=== PATIENT | male | born 1950 | race Caucasian/White ===

== ENCOUNTER → 2017-09-27 12:51 | Outpatient (POV) | payer MEDICARE, OTHER, SELFPAY ==
[2017-09-27 13:01] VITALS: BP 151/86; PULSE 80; RESP 18; TEMP 36.6; O2SAT 99
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
[2017-09-27 15:55] LABS: Amphetamine/Metha Screen,Urine Negative ng/mL (<1000); Barbiturates Screen,Urine Negative ng/mL (<200); Benzodiazepines Screen,Urine Negative ng/mL (200); Cannabinoid Screen,Urine Negative ng/mL (<50); Cocaine Screen,Urine Negative ng/g (<300); Methadone Screen,Urine Negative ng/mL (<300); Opiate Screen,Urine Positive ng/mL (<300); Phencyclidine Screen,Urine Negative ng/mL (<25)
[2017-10-04 19:11] LABS: Codeine Negative (Cutoff=100); Hydrocodone Negative (Cutoff=100); Hydromorphone Positive (.); Morphine Positive (.)
[2017-10-05 14:27] LABS: Opiates Positive (.)
--- NOTE | 2017-11-05 14:34 | PC.NURSE ---
FLEXERIL 10MG WITH 2 REFILLS FAXED TO [facility]
== END ==
PROVIDERS: PCP Family Medicine; Visit Provider Clinical Nurse Specialist Family Health
DX: M54.16 Radiculopathy, lumbar region (principal); M51.36 Other intervertebral disc degeneration, lumbar region; M46.90 Unspecified inflammatory spondylopathy, site unspecified; Z79.899 Other long term (current) drug therapy
CPT/HCPCS: 80305; 80361; 80365; 99202; G0480

== ENCOUNTER → 2017-11-15 12:56 | Outpatient (POV) | payer MEDICARE, OTHER, SELFPAY ==
[2017-11-15 13:10] VITALS: BP 185/114; PULSE 112; RESP 18; O2SAT 97; BMI 31.8
--- NOTE | 2017-11-15 13:20 | HMH.PAINSOAP ---
[facility] Pain Management SOAP Note Subjective:: Patient is a pleasant 67-year-old white male who presents today for follow-up and medication refills. Patient is currently on hydromorphone 8 mg 1 p.o. twice daily and morphine sulfate ER 30 mg 1 p.o. twice daily. Patient denies side effects to the medication. Patient's ALISHA #[id number] reviewed and appropriate. Patient states most of his pain is in his back. Patient states that the pain medication helps up to 70%. Patient states driving and sitting for long periods of time make his pain worse while moving around can decreased.. Patient urine drug screen at her last visit that was appropriate. Patient did have a bad experience with the lab. Patient may do a blood serum drug screen at any time if necessary. ROS General: no recent weight change, no fever, no sleep disturbances Respiratory: no cough, no shortness of air, no recurring pulmonary infections Cardiovascular/Peripheral Vascular: No chest pain, No palpitations, no edema, no shortness of breath. Gastrointestinal: no incontinence, normal bowel movements reported Genitourinary: no incontinence Musculoskeletal: Back pain, leg pain Psychiatric: normal mood/ affect Neurological: [denies weakness in extremities], [denies balance issues] Objective:: Physical Exam General: Alert and oriented x3, no acute distress, pleasant and cooperative, [on room air] Lungs: Resps E/U, Symmetrical chest expansion, Eyes: PERRL Musculoskeletal: Flexion and extension of lumbar spine somewhat guarded secondary to pain, deep tendon reflexes normal, strength in upper and lower extremities [5/5], antalgic gait noted Neurological: speech clear, construction stonemason equal, no gross sensory deficits Assessment:: Postlaminectomy syndrome, lumbar radiculopathy, degenerative disc disease of the lumbar spine, facet arthropathy. Plan:: We will refill the patient's Dilaudid 8 mg 1 p.o. twice daily morphine sulfate ER 30 mg 1 p.o. twice daily. We will continue to monitor for compliance. We will give him 2 months worth of prescriptions. Patient can sampler pickup the third month in the clinic. Dr. Rodriguez has reviewed this chart and agrees with this plan of care. I will follow-up with the pain 3 months. Patient has been prescribed a controlled substance after being counseled on the medication, medication safety, and possible side effects. ALISHA report has been obtained and reviewed prior to prescription and found to be appropriate. Opioid contract was reviewed and signed by the patient, and that they have agreed to all of the terms set forth by our compliance program. This note was dictated using voice recognition software and may contain errors or omissions
--- NOTE | 2017-11-15 13:25 | P.CONS_ITS ---
[facility] Pain Management SOAP Note Subjective:: Patient is a pleasant 67-year-old white male who presents today for follow-up and medication refills. Patient is currently on hydromorphone 8 mg 1 p.o. twice daily and morphine sulfate ER 30 mg 1 p.o. twice daily. Patient denies side effects to the medication. Patient's ALISHA #[id number] reviewed and appropriate. Patient states most of his pain is in his back. Patient states that the pain medication helps up to 70%. Patient states driving and sitting for long periods of time make his pain worse while moving around can decreased.. Patient urine drug screen at her last visit that was appropriate. Patient did have a bad experience with the lab. Patient may do a blood serum drug screen at any time if necessary. ROS General: no recent weight change, no fever, no sleep disturbances Respiratory: no cough, no shortness of air, no recurring pulmonary infections Cardiovascular/Peripheral Vascular: No chest pain, No palpitations, no edema, no shortness of breath. Gastrointestinal: no incontinence, normal bowel movements reported Genitourinary: no incontinence Musculoskeletal: Back pain, leg pain Psychiatric: normal mood/ affect Neurological: [denies weakness in extremities], [denies balance issues] Objective:: Physical Exam General: Alert and oriented x3, no acute distress, pleasant and cooperative, [ on room air] Lungs: Resps E/U, Symmetrical chest expansion, Eyes: PERRL Musculoskeletal: Flexion and extension of lumbar spine somewhat guarded secondary to pain, deep tendon reflexes normal, strength in upper and lower extremities [5/5], antalgic gait noted Neurological: speech clear, yardmaster equal, no gross sensory deficits Assessment:: Postlaminectomy syndrome, lumbar radiculopathy, degenerative disc disease of the lumbar spine, facet arthropathy. Plan:: We will refill the patient's Dilaudid 8 mg 1 p.o. twice daily morphine sulfate ER 30 mg 1 p.o. twice daily. We will continue to monitor for compliance. We will give him 2 months worth of prescriptions. Patient can crab picker the third month in the clinic. Dr. Rodriguez has reviewed this chart and agrees with this plan of care. I will follow-up with the pain 3 months. Patient has been prescribed a controlled substance after being counseled on the medication, medication safety, and possible side effects. ALISHA report has been obtained and reviewed prior to prescription and found to be appropriate. Opioid contract was reviewed and signed by the patient, and that they have agreed to all of the terms set forth by our compliance program. This note was dictated using voice recognition software and may contain errors or omissions
== END ==
PROVIDERS: PCP Family Medicine; Visit Provider Clinical Nurse Specialist Family Health
DX: M54.16 Radiculopathy, lumbar region (principal)
CPT/HCPCS: 99212

== ENCOUNTER → 2018-01-25 12:12 | Outpatient (CLI) | payer MEDICARE, SELFPAY | PROVIDERS: PCP Family Medicine; Visit Provider Clinical Nurse Specialist Family Health | DX: Z79.899 Other long term (current) drug therapy (principal) | CPT/HCPCS: 36415; 80356; 80361; G0480 ==

== ENCOUNTER → 2018-02-23 15:17 | Outpatient (POV) | payer MEDICARE, OTHER, SELFPAY ==
[2018-02-23 16:14] VITALS: BP 160/90; PULSE 85; RESP 16; TEMP 36.7; O2SAT 96; BMI 33.3
--- NOTE | 2018-02-23 16:44 | P.CONS_ITS ---
[facility] Pain Management SOAP Note Subjective:: This patient is a pleasant 67-year-old white male who we are medically managing for low back pain with lumbar radiculopathy symptoms and postlaminectomy syndrome of lumbar spine. He is doing very well on morphine sulfate extended release 30 mg twice a day and hydromorphone 8 mg twice a day breakthrough. Kaspar and urine drug screen are all appropriate. Kaspar [id number]. We will refill his medications today. We will give him 2 months worth of medications. We will follow-up with him in 2 months. Objective:: Alert and oriented x3 in no acute distress. Patient does have an antalgic gait. Motor strength of the lower extremities is 5/5. There is no gross sensory de ficit. Assessment:: Degenerative disc disease of lumbar spine with lumbar radiculopathy symptoms and postlaminectomy syndrome lumbar spine Plan:: We will refill his morphine sulfate extended release 30 mg twice a day and hydromorphone 8 mg twice a day. We will give him 2 months worth of prescriptions. Will follow up with him in 2 months. He is considering spinal cord stimulation or intrathecal therapy. We will talk more about this at his next visit.
== END ==
PROVIDERS: PCP Family Medicine; Visit Provider Anesthesiology
DX: M96.1 Postlaminectomy syndrome, not elsewhere classified; M51.16 Intervertebral disc disorders with radiculopathy, lumbar region
CPT/HCPCS: 99212

== ENCOUNTER → 2018-04-20 13:57 | Outpatient (CLI) | payer MEDICARE, OTHER, SELFPAY | PROVIDERS: Visit Provider Clinical Nurse Specialist Family Health | DX: Z79.899 Other long term (current) drug therapy (principal) | CPT/HCPCS: 36415; 80356; 80361; G0480 ==

== ENCOUNTER → 2018-05-16 14:20 | Outpatient (POV) | payer MEDICARE, OTHER, SELFPAY ==
[2018-05-16 14:44] VITALS: BP 158/96; PULSE 91; RESP 18; O2SAT 98; BMI 32.5
--- NOTE | 2018-05-16 15:07 | P.CONS_ITS ---
[facility] Pain Management SOAP Note Subjective:: Patient is a pleasant 68-year-old white male who presents today for medication refills. Patient is being treated for low back pain secondary to lumbar radiculopathy symptoms and postlaminectomy syndrome. He is doing well on morphine sulfate extended release 30 mg 1 p.o. twice daily and hydromorphone 8 mg twice a day for breakthrough. Alisha and urine drug screen has been appropriate. Patient would like to discuss moving towards an intrathecal pump I believe this would be beneficial. Patient is already showing signs of hyper analgesia. ROS General: no recent weight change, no fever, no sleep disturbances Respiratory: no cough, no shortness of air, no recurring pulmonary infections Cardiovascular/Peripheral Vascular: No chest pain, No palpitations, no edema, no shortness of breath. Gastrointestinal: no incontinence, normal bowel movements reported Genitourinary: no incontinence Musculoskeletal: Back pain, leg pain Psychiatric: normal mood/ affect Neurological: [denies weakness in extremities], [denies balance issues] Objective:: Physical Exam General: Alert and oriented x3, no acute distress, pleasant and cooperative, [on room air] Lungs: Resps E/U, Symmetrical chest expansion, Eyes: PERRL Musculoskeletal: Flexion and extension of lumbar spine somewhat guarded secondary to pain, deep tendon reflexes normal, strength in upper and lower extremities [5/5], [abnormal gait noted] Neurological: speech clear, event coordinator equal, no gross sensory deficits Assessment:: Degenerative disc disease lumbar spine with lumbar radiculopathy, post laminectomy syndrome Plan:: We will refill his morphine ER 30 mg 1 p.o. twice daily and hydromorphone 8 mg 1 p.o. twice daily. We will send him for psychological evaluation 2 months and see him back in the office in 3 months. At that time we will begin a weaning plan if he is an appropriate candidate for intrathecal pain pump. Patient has been prescribed a controlled substance after being counseled on the medication, medication safety, and possible side effects. ALISHA report has been obtained and reviewed prior to prescription and found to be appropriate. Opioid contract was reviewed and signed by the patient, and that they have agreed to all of the terms set forth by our compliance program. This note was dictated using voice recognition software and may contain errors or omissions
--- NOTE | 2018-05-25 09:23 | PC.NURSE ---
05/25/18 refill for flexeril tid faxed to [facility]
== END ==
PROVIDERS: PCP Family Medicine; Visit Provider Clinical Nurse Specialist Family Health
DX: M51.16 Intervertebral disc disorders with radiculopathy, lumbar region (principal); M96.1 Postlaminectomy syndrome, not elsewhere classified
CPT/HCPCS: 99213

== ENCOUNTER → 2018-08-15 10:58 | Outpatient (POV) | payer MEDICARE, OTHER, SELFPAY ==
[2018-08-15 11:49] VITALS: BP 145/82; PULSE 83; RESP 18; O2SAT 98; BMI 31.8
--- NOTE | 2018-08-15 12:48 | P.CONS_ITS ---
[facility] Pain Management SOAP Note Subjective:: Patient is a 68-year-old white male who presents today for medication refills. He is being treated for low back pain secondary to lumbar radiculopathy and postlaminectomy syndrome. He is currently on morphine sulfate extended release 30 mg 1 p.o. twice daily and hydromorphone 8 mg 1 p.o. twice daily. Alisha and urine drug screens have been appropriate. Patient has been talking about an intrathecal pain pump however he canceled his appointment to his psychological evaluation. Once we discussed weaning off medications he was a little concerned in regards to this. Patient and I had a long discussion that this is going to be necessary moving forward. I want the patient to begin weaning off now. ROS General: no recent weight change, no fever, no sleep disturbances Respiratory: no cough, no shortness of air, no recurring pulmonary infections Cardiovascular/Peripheral Vascular: No chest pain, No palpitations, no edema, no shortness of breath. Gastrointestinal: no incontinence, normal bowel movements reported Genitourinary: no incontinence Musculoskeletal: Back pain, leg pain Psychiatric: normal mood/ affect Neurological: [denies weakness in extremities], [denies balance issues] Objective:: Physical Exam General: Alert and oriented x3, no acute distress, pleasant and cooperative, [on room air] Lungs: Resps E/U, Symmetrical chest expansion, Eyes: PERRL Musculoskeletal: Flexion and extension of lumbar spine somewhat guarded secondary to pain, deep tendon reflexes normal, strength in upper and lower extremities [5/5], [abnormal gait noted] Neurological: speech clear, plasterer stucco equal, no gross sensory deficits Assessment:: Degenerative disc disease lumbar spine with lumbar radiculopathy and postlaminectomy syndrome Plan:: We will refill the patient's medication morphine extended release 1 p.o. twice daily and hydromorphone 8 mg 1 p.o. twice daily. We will send him to a psychological evaluation. We will see him back in 2 months reassess his symptoms at that time. I discussed with him he needs to start weaning himself off of his medication he states he understands. Patient has been prescribed a controlled substance after being counseled on the medication, medication safety, and possible side effects. ALISHA report has been obtained and reviewed prior to prescription and found to be appropriate. Opioid contract was reviewed and signed by the patient, and that they have agreed to all of the terms set forth by our compliance program. Dr. Rodriguez has reviewed this note and agrees with this plan of care. This note was dictated using voice recognition software and may contain errors or omissions
== END ==
PROVIDERS: PCP Family Medicine; Visit Provider Clinical Nurse Specialist Family Health
DX: M51.16 Intervertebral disc disorders with radiculopathy, lumbar region (principal); M96.1 Postlaminectomy syndrome, not elsewhere classified
CPT/HCPCS: 99213

== ENCOUNTER → 2018-10-11 11:14 | Outpatient (POV) | payer MEDICARE, OTHER, SELFPAY ==
[2018-10-11 11:26] VITALS: BP 162/93; PULSE 98; RESP 18; O2SAT 98; BMI 31.5
--- NOTE | 2018-10-11 12:40 | HMH.PAINSOAP ---
[facility] Pain Management SOAP Note Subjective:: Patient is a pleasant 68-year-old white male who presents today for medication refills and discussion in regards to his psychological evaluation. 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 I do believe that this is probably correct. Patient is tearful today. Patient is unsure if he can move forward with weaning. I discussed with him the necessity of that per his hyper analgesia. Patient has been on narcotics for years. He is currently on morphine extended release 30 mg 1 p.o. twice daily and Dilaudid 8 mg 1 p.o. twice daily. He rates his pain a 9 out of 10. ROS General: no recent weight change, no fever, no sleep disturbances Respiratory: no cough, no shortness of air, no recurring pulmonary infections Cardiovascular/Peripheral Vascular: No chest pain, No palpitations, no edema, no shortness of breath. Gastrointestinal: no incontinence, normal bowel movements reported Genitourinary: no incontinence Musculoskeletal: Back pain, leg pain Psychiatric: normal mood/ affect Neurological: [denies weakness in extremities], [denies balance issues] Objective:: Physical Exam General: Alert and oriented x3, no acute distress, pleasant and cooperative, [on room air] Lungs: Resps E/U, Symmetrical chest expansion, Eyes: PERRL Musculoskeletal: Flexion and extension of lumbar spine somewhat guarded secondary to pain, deep tendon reflexes normal, strength in upper and lower extremities [5/5], [abnormal gait noted] Neurological: speech clear, administrative law judge equal, no gross sensory deficits Assessment:: Degenerative disc disease lumbar spine with lumbar radiculopathy and postlaminectomy syndrome Plan:: We will continue to wean the patient. We will change him to hydromorphone 4 mg 1 p.o. 3 times daily and continue his morphine extended release 30 mg 1 p.o. twice daily for the first month and change it to morphine extended release 15 mg 2 in the morning 1 at night for the next month. I will follow-up with him in 2 months reassess his symptoms at that time. I do believe he would benefit from an intrathecal pain pump or an opioid vacation. Patient's been instructed to call the office if he has any issues prior to his next appointment. Dr. Rodriguez has reviewed this note and agrees with this plan of care. This note was dictated using voice recognition software and may contain errors or omissions Patient has been prescribed a controlled substance after being counseled on the medication, medication safety, and possible side effects. ALISHA report has been obtained and reviewed prior to prescription and found to be appropriate. Opioid contract was reviewed and signed by the patient, and that they have agreed to all of the terms set forth by our compliance program.
--- NOTE | 2018-10-11 12:44 | P.CONS_ITS ---
[facility] Pain Management SOAP Note Subjective:: Patient is a pleasant 68-year-old white male who presents today for medication refills and discussion in regards to his psychological evaluation. 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 I do believe that this is probably correct. Patient is tearful today. Patient is unsure if he can move forward with weaning. I discussed with him the necessity of that per his hyper analgesia. Patient has been on narcotics for years. He is currently on morphine extended release 30 mg 1 p.o. twice daily and Dilaudid 8 mg 1 p.o. twice daily. He rates his pain a 9 out of 10. ROS General: no recent weight change, no fever, no sleep disturbances Respiratory: no cough, no shortness of air, no recurring pulmonary infections Cardiovascular/Peripheral Vascular: No chest pain, No palpitations, no edema, no shortness of breath. Gastrointestinal: no incontinence, normal bowel movements reported Genitourinary: no incontinence Musculoskeletal: Back pain, leg pain Psychiatric: normal mood/ affect Neurological: [denies weakness in extremities], [denies balance issues] Objective:: Physical Exam General: Alert and oriented x3, no acute distress, pleasant and cooperative, [on room air] Lungs: Resps E/U, Symmetrical chest expansion, Eyes: PERRL Musculoskeletal: Flexion and extension of lumbar spine somewhat guarded secondary to pain, deep tendon reflexes normal, strength in upper and lower extremities [5/5], [abnormal gait noted] Neurological: speech clear, sprinkler fitter helper equal, no gross sensory deficits Assessment:: Degenerative disc disease lumbar spine with lumbar radiculopathy and postlaminectomy syndrome Plan:: We will continue to wean the patient. We will change him to hydromorphone 4 mg 1 p.o. 3 times daily and continue his morphine extended release 30 mg 1 p.o. twice daily for the first month and change it to morphine extended release 15 mg 2 in the morning 1 at night for the next month. I will follow-up with him in 2 months reassess his symptoms at that time. I do believe he would benefit from an intrathecal pain pump or an opioid vacation. Patient's been instructed to call the office if he has any issues prior to his next appointment. Dr. Rodriguez has reviewed this note and agrees with this plan of care. This note was dictated using voice recognition software and may contain errors or omissions Patient has been prescribed a controlled substance after being counseled on the medication, medication safety, and possible side effects. ALISHA report has been obtained and reviewed prior to prescription and found to be appropriate. Opioid contract was reviewed and signed by the patient, and that they have agreed to all of the terms set forth by our compliance program.
== END ==
PROVIDERS: PCP Family Medicine; Visit Provider Clinical Nurse Specialist Family Health
DX: M51.16 Intervertebral disc disorders with radiculopathy, lumbar region (principal); M96.1 Postlaminectomy syndrome, not elsewhere classified; Z79.899 Other long term (current) drug therapy
CPT/HCPCS: 36415; 80356; 80361; 99212; G0480

== ENCOUNTER → 2019-01-10 10:59 | Outpatient (POV) | payer MEDICARE, OTHER, SELFPAY ==
[2019-01-10 11:28] VITALS: BP 136/81; PULSE 95; RESP 18; O2SAT 98; BMI 31.2
--- NOTE | 2019-01-10 12:04 | HMH.PAINSOAP ---
[facility] Pain Management SOAP Note Subjective:: Patient is a pleasant 68-year-old white male who presents today for medication refills. Patient had a psychological evaluation for consideration on intrathecal pain therapy. 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 Patient and I have been slowly weaning his medication. We will continue to do so today. Alisha #[id number] reviewed and appropriate. He is currently on Dilaudid 4 mg 1 p.o. 3 times daily morphine ER 15 mg 1 p.o. 3 times daily. Today we will be decreasing his morphine. He rates his pain 6 out of 10 however this is his baseline. ROS General: no recent weight change, no fever, no sleep disturbances Respiratory: no cough, no shortness of air, no recurring pulmonary infections Cardiovascular/Peripheral Vascular: No chest pain, No palpitations, no edema, no shortness of breath. Gastrointestinal: no incontinence, normal bowel movements reported Genitourinary: no incontinence Musculoskeletal: Back pain, leg pain Psychiatric: normal mood/ affect Neurological: [denies weakness in extremities], [denies balance issues] Objective:: Physical Exam General: Alert and oriented x3, no acute distress, pleasant and cooperative, [on room air] Lungs: Resps E/U, Symmetrical chest expansion, Eyes: PERRL Musculoskeletal: Flexion and extension of lumbar spine somewhat guarded secondary to pain, deep tendon reflexes normal, strength in upper and lower extremities [5/5], [abnormal gait noted] Neurological: speech clear, adjunct faculty instructor equal, no gross sensory deficits Assessment:: Degenerative disc disease lumbar spine with lumbar radiculopathy and postlaminectomy syndrome Plan:: We will refill his hydromorphone 4 mg 1 p.o. 3 times daily and give him 2 months worth of this. We will then give him 1 month of morphine extended release 15 mg 2 tabs in the morning 1 tab at night for the next month we will then decrease him to morphine extended release 15 mg 1 p.o. twice daily. Patient understands this. We will follow-up with him 2 months reassess his symptoms wean him again. Patient has been prescribed a controlled substance after being counseled on the medication, medication safety, and possible side effects. ALISHA report has been obtained and reviewed prior to prescription and found to be appropriate. Opioid contract was reviewed and signed by the patient, and that they have agreed to all of the terms set forth by our compliance program. Dr. Rodriguez has reviewed this note and agrees with this plan of care. This note was dictated using voice recognition software and may contain errors or omissions Pain Management Hx Components *Have you ever received a pneumonia vaccine?: Yes *Have you received a flu vaccine this season?: Yes - *Social History *Occupational Status:: other *Travel in the last 8 weeks: None
--- NOTE | 2019-01-10 12:07 | P.CONS_ITS ---
[facility] Pain Management SOAP Note Subjective:: Patient is a pleasant 68-year-old white male who presents today for medication refills. Patient had a psychological evaluation for consideration on intrathecal pain therapy. 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 Patient and I have been slowly weaning his medication. We will continue to do so today. Alisha #[id number] reviewed and appropriate. He is currently on Dilaudid 4 mg 1 p.o. 3 times daily morphine ER 15 mg 1 p.o. 3 times daily. Today we will be decreasing his morphine. He rates his pain 6 out of 10 however this is his baseline. ROS General: no recent weight change, no fever, no sleep disturbances Respiratory: no cough, no shortness of air, no recurring pulmonary infections Cardiovascular/Peripheral Vascular: No chest pain, No palpitations, no edema, no shortness of breath. Gastrointestinal: no incontinence, normal bowel movements reported Genitourinary: no incontinence Musculoskeletal: Back pain, leg pain Psychiatric: normal mood/ affect Neurological: [denies weakness in extremities], [denies balance issues] Objective:: Physical Exam General: Alert and oriented x3, no acute distress, pleasant and cooperative, [on room air] Lungs: Resps E/U, Symmetrical chest expansion, Eyes: PERRL Musculoskeletal: Flexion and extension of lumbar spine somewhat guarded secondary to pain, deep tendon reflexes normal, strength in upper and lower extremities [5/5], [abnormal gait noted] Neurological: speech clear, corporate aircraft mechanic equal, no gross sensory deficits Assessment:: Degenerative disc disease lumbar spine with lumbar radiculopathy and postlaminectomy syndrome Plan:: We will refill his hydromorphone 4 mg 1 p.o. 3 times daily and give him 2 months worth of this. We will then give him 1 month of morphine extended release 15 mg 2 tabs in the morning 1 tab at night for the next month we will then decrease him to morphine extended release 15 mg 1 p.o. twice daily. Patient understands this. We will follow-up with him 2 months reassess his symptoms wean him again. Patient has been prescribed a controlled substance after being counseled on the medication, medication safety, and possible side effects. ALISHA report has been obtained and reviewed prior to prescription and found to be appropriate. Opioid contract was reviewed and signed by the patient, and that they have agreed to all of the terms set forth by our compliance program. Dr. Rodriguez has reviewed this note and agrees with this plan of care. This note was dictated using voice recognition software and may contain errors or omissions Pain Management Hx Components *Have you ever received a pneumonia vaccine?: Yes *Have you received a flu vaccine this season?: Yes - *Social History *Occupational Status:: other *Travel in the last 8 weeks: None
--- NOTE | 2019-02-13 09:38 | PC.NURSE ---
2 REFILLS FOR FLEXERIL 10MG TID FAXED TO [facility] [place] PER PROVIDER ORDER
== END ==
PROVIDERS: PCP Family Medicine; Visit Provider Clinical Nurse Specialist Family Health
DX: M51.16 Intervertebral disc disorders with radiculopathy, lumbar region (principal); M96.1 Postlaminectomy syndrome, not elsewhere classified
CPT/HCPCS: 99212

== ENCOUNTER → 2019-03-07 09:38 | Outpatient (POV) | payer MEDICARE, OTHER, SELFPAY ==
[2019-03-07 09:51] VITALS: BP 133/88; PULSE 90; RESP 18; O2SAT 99; BMI 17.9
--- NOTE | 2019-03-07 10:22 | HMH.PAINSOAP ---
[facility] Pain Management SOAP Note Subjective:: Patient is a pleasant 69-year-old white male who presents today for medication refills. He is being treated for low back pain with lumbar radiculopathy symptoms, as well as postlaminectomy syndrome. Patient has undergone a psychological evaluation for consideration of an intrathecal pain pump. 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 As result, we have been weaning the patient on his medication. Patient is currently being treated with Dilaudid 4 mg 1 tablet p.o. 3 times daily and morphine ER 50 mg 1 tablet p.o. 3 times daily. He denies any side effects to his medications. Patient's Alfie #[id number] has been reviewed and is appropriate along with previous urine drug screens. He is continuing with anti-inflammatories and a home stretching program. Today, the patient is complaining of low back pain with radiation into his left hip and left leg. He says that it is a electrical-like pain . Patient is interested in injective therapy. Patient has had epidurals in the past and is only got about 20 to 30% relief with the injections. Review of Systems General: No recent weight changes, no fever, no sleep disturbances Respiratory: No cough, no shortness of air, no recurring pulmonary infections Cardiovascular/peripheral vascular: No chest pain, no palpitations, no edema, no shortness of breath Gastrointestinal: No new onset incontinence, normal bowel movements reported Genitourinary: No new onset incontinence Musculoskeletal: Back pain, left hip pain, left leg pain Psychiatric: Normal mood/affect Neurological: [Denies weakness in extremities], [denies balance issues] Objective:: Physical exam General: Alert and oriented x3, no acute distress, pleasant and cooperative, [on room air] Lungs: Respirations even and unlabored, symmetrical chest expansion Eyes: PERRL Musculoskeletal: Flexion and extension of lumbar spine somewhat guarded secondary to pain, deep tendon reflexes normal, strength in upper and lower extremities [5/5], [abnormal gait noted], positive Ozzy test, positive compression test, positive distraction test Neurological: Speech clear, gas compressor operator equal, no gross sensory deficit Assessment:: Degenerative disc disease lumbar spine with lumbar radiculopathy symptoms and postlaminectomy syndrome Plan:: The patient does have notable point tenderness noted to his left SI joint. We will schedule him for a left SI joint injection. We will also wean the patient today on his medication. We will order hydromorphone 4 mg 1 tablet p.o. 3 times daily and morphine extended release 50 mg 1 tablet p.o. twice daily We will give him 2 months worth of medication and see him back in the clinic following his SI joint injection to reassess his symptoms. He has been instructed to contact the clinic if he has any concerns before his next appointment. Dr. Rodriguez has reviewed this note and agrees with this plan of care. This note was dictated using voice recognition software and make contain errors or omissions.. [facility] History Medical History: Denies:: Diabetes Mellitus Type 1, Diabetes Mellitus Type 2 *Have you ever received a pneumonia vaccine?: No *Have you received a flu vaccine this season?: No Other Medical History: Reports: Arthritis Amputation: No Fractures: No - *Social History Alcohol Intake: never *Occupational Status:: other Housing: house Household Members: spouse *Travel in the last 8 weeks: None Family Hx:: Unable to obtain
--- NOTE | 2019-03-07 10:26 | P.CONS_ITS ---
[facility] Pain Management SOAP Note Subjective:: Patient is a pleasant 69-year-old white male who presents today for medication refills. He is being treated for low back pain with lumbar radiculopathy symptoms, as well as postlaminectomy syndrome. Patient has undergone a psychological evaluation for consideration of an intrathecal pain pump. 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 As result, we have been weaning the patient on his medication. Patient is currently being treated with Dilaudid 4 mg 1 tablet p.o. 3 times daily and morphine ER 50 mg 1 tablet p.o. 3 times daily. He denies any side effects to his medications. Patient's Alfie #[id number] has been reviewed and is appropriate along with previous urine drug screens. He is continuing with anti-inflammatories and a home stretching program. Today, the patient is complaining of low back pain with radiation into his left hip and left leg. He says that it is a electrical-like pain . Patient is interested in injective therapy. Patient has had epidurals in the past and is only got about 20 to 30% relief with the injections. Review of Systems General: No recent weight changes, no fever, no sleep disturbances Respiratory: No cough, no shortness of air, no recurring pulmonary infections Cardiovascular/peripheral vascular: No chest pain, no palpitations, no edema, no shortness of breath Gastrointestinal: No new onset incontinence, normal bowel movements reported Genitourinary: No new onset incontinence Musculoskeletal: Back pain, left hip pain, left leg pain Psychiatric: Normal mood/affect Neurological: [Denies weakness in extremities], [denies balance issues] Objective:: Physical exam General: Alert and oriented x3, no acute distress, pleasant and cooperative, [on room air] Lungs: Respirations even and unlabored, symmetrical chest expansion Eyes: PERRL Musculoskeletal: Flexion and extension of lumbar spine somewhat guarded secondary to pain, deep tendon reflexes normal, strength in upper and lower extremities [5/5], [abnormal gait noted], positive Ozzy test, positive compression test, positive distraction test Neurological: Speech clear, structural metal worker equal, no gross sensory deficit Assessment:: Degenerative disc disease lumbar spine with lumbar radiculopathy symptoms and postlaminectomy syndrome Plan:: The patient does have notable point tenderness noted to his left SI joint. We will schedule him for a left SI joint injection. We will also wean the patient today on his medication. We will order hydromorphone 4 mg 1 tablet p.o. 3 times daily and morphine extended release 50 mg 1 tablet p.o. twice daily We will give him 2 months worth of medication and see him back in the clinic following his SI joint injection to reassess his symptoms. He has been instructed to contact the clinic if he has any concerns before his next appointment. Dr. Rodriguez has reviewed this note and agrees with this plan of care. This note was dictated using voice recognition software and make contain errors or omissions.. [facility] History Medical History: Denies:: Diabetes Mellitus Type 1, Diabetes Mellitus Type 2 *Have you ever received a pneumonia vaccine?: No *Have you received a flu vaccine this season?: No Other Medical History: Reports: Arthritis Amputation: No Fractures: No - *Social History Alcohol Intake: never *Occupational Status:: other Housing: house Household Members: spouse *Travel in the last 8 weeks: None Family Hx:: Unable to obtain
[2019-03-14 10:10] LABS: 6-Acetylmorphine, Unconjugated Negative (Not Estab.); Codeine, Unconjugated Negative ng/mL (10 - 100); Hydrocodone, Unconjugated Negative ng/mL (10 - 100); Hydromorphone, Unconjugated 3 ng/mL (1 - 30); Morphine, Unconjugated 8 ng/mL (21 - 65)
[2019-03-14 12:56] LABS: Dihydrocodeine, Unconjugated Negative (Not Estab.)
== END ==
PROVIDERS: Clinical Nurse Specialist Family Health; PCP Family Medicine; Visit Provider Clinical Nurse Specialist Family Health
DX: M51.16 Intervertebral disc disorders with radiculopathy, lumbar region; M96.1 Postlaminectomy syndrome, not elsewhere classified; Z79.891 Long term (current) use of opiate analgesic
CPT/HCPCS: 36415; 80356; 80361; 80365; 99212; G0480

== ENCOUNTER → 2019-06-13 08:39 | Outpatient (POV) | payer MEDICARE, OTHER, SELFPAY ==
[2019-06-13 08:56] VITALS: BP 145/87; PULSE 76; RESP 18; O2SAT 99; BMI 29.9
--- NOTE | 2019-06-13 09:35 | P.CONS_ITS ---
[facility] Pain Management SOAP Note Subjective:: Patient is a pleasant 69-year-old white male who presents today for follow-up. Patient and I are working towards weaning him for a intrathecal pain pump. He overall doing well he rates his pain a 6/10. Patient's current medication regimen is hydromorphone 4 mg 1 p.o. 3 times daily morphine extended release 15 mg 1 p.o. twice daily. Patient's current morphine equivalent 78. Patient denies side effects of medication. Patient has been much more active and lost weight. ROS General: no recent weight change, no fever, no sleep disturbances Respiratory: no cough, no shortness of air, no recurring pulmonary infections Cardiovascular/Peripheral Vascular: No chest pain, No palpitations, no edema, no shortness of breath. Gastrointestinal: no new onset incontinence, normal bowel movements reported Genitourinary: no new onset incontinence Musculoskeletal: Back pain, leg pain Psychiatric: normal mood/ affect Neurological: [denies new onset weakness in extremities], [denies new onset balance issues] Objective:: Physical Exam General: Alert and oriented x3, no acute distress, pleasant and cooperative, [on room air] Lungs: Resps E/U, Symmetrical chest expansion, Eyes: PERRL Musculoskeletal: Flexion and extension of lumbar spine somewhat guarded seco ndary to pain, deep tendon reflexes normal, strength in upper and lower extremities [5/5], [abnormal gait noted] Neurological: speech clear, director religious education equal, no gross sensory deficits Assessment:: Degenerative disc disease lumbar spine with lumbar radiculopathy symptoms and postlaminectomy syndrome Plan:: We will refill the patient's medication we will give him 2 months of hydromorphone 4 mg 1 p.o. 3 times daily and morphine 15 mg extended release twice daily for the first month and then decrease it to morphine sulfate ER 15 mg once daily. I will follow-up with the patient in 2 months and reassess him at that time. Patient's been instructed to call the office if he has any issues prior to his next appointment. Dr. Rodriguez has reviewed this note and agrees with this plan of care. This note was dictated using voice recognition software and may contain errors or omissions Patient has been prescribed a controlled substance after being counseled on the medication, medication safety, and possible side effects. ALISHA report has been obtained and reviewed prior to prescription and found to be appropriate. Opioid contract was reviewed and signed by the patient, and that they have agreed to all of the terms set forth by our compliance program. [facility] History I have reviewed the patient's past medical history: Yes Medical History: Denies:: Diabetes Mellitus Type 1, Diabetes Mellitus Type 2 *Have you ever received a pneumonia vaccine?: Yes *Have you received a flu vaccine this season?: Yes Other Medical History: Reports: Arthritis Amputation: No Fractures: No - *Social History Alcohol Intake: never *Occupational Status:: other Housing: house Household Members: spouse *Travel in the last 8 weeks: None Family Hx:: Unable to obtain
[2019-06-19 11:50] LABS: Chlordiazepoxide <0.1 ug/mL (0.1-0.9)
[2019-06-20 05:30] LABS: Acetone Negative % (0.000-0.010); Butalbital <1 ug/mL (1-10); Diazepam <0.1 ug/mL (0.1-0.9); Ethanol Negative % (0.000-0.010); Isopropanol Negative % (0.000-0.010); Pentobarbital <1 ug/mL (1-5)
== END ==
PROVIDERS: PCP Family Medicine; Visit Provider Clinical Nurse Specialist Family Health
DX: M51.16 Intervertebral disc disorders with radiculopathy, lumbar region (principal); M96.1 Postlaminectomy syndrome, not elsewhere classified; Z79.891 Long term (current) use of opiate analgesic; Z79.899 Other long term (current) drug therapy; M19.90 Unspecified osteoarthritis, unspecified site
CPT/HCPCS: 36415; 80306; 80356; 80361; 99212; G0480

== ENCOUNTER → 2019-08-07 11:09 | Outpatient (POV) | payer MEDICARE, OTHER, SELFPAY ==
[2019-08-07 12:15] VITALS: BP 164/75; PULSE 93; RESP 18; O2SAT 99; BMI 29.9
--- NOTE | 2019-08-07 12:19 | HMH.PAINSOAP ---
[facility] Pain Management SOAP Note Subjective:: A pleasant 69-year-old white male who presents today for follow-up. We are working towards weaning him for intrathecal pain pump however due to the coronavirus pandemic we have put off any intrathecal pump trials. So we will hold his wean for several months. We will re-begin his wean when I see him at his next visit. Patient is currently on morphine 15 mg extended release 1 daily and hydromorphone 4 mg 1 p.o. 3 times daily. ROS General: no recent weight change, no fever, no sleep disturbances Respiratory: no cough, no shortness of air, no recurring pulmonary infections Cardiovascular/Peripheral Vascular: No chest pain, No palpitations, no edema, no shortness of breath. Gastrointestinal: no new onset incontinence, normal bowel movements reported Genitourinary: no new onset incontinence Musculoskeletal: Back pain, leg pain Psychiatric: normal mood/ affect Neurological: [denies new onset weakness in extremities], [denies new onset balance issues] Objective:: Physical Exam General: Alert and oriented x3, no acute distress, pleasant and cooperative, [on room air] Lungs: Resps E/U, Symmetrical chest expansion, Eyes: PERRL Musculoskeletal: Flexion and extension of lumbar spine somewhat guarded secondary to pain, deep tendon reflexes normal, strength in upper and lower extremities [5/5], [abnormal gait noted] Neurological: speech clear, deburring technician equal, no gross sensory deficits Assessment:: Degenerative disc disease lumbar spine with lumbar radiculopathy postlaminectomy syndrome Plan:: We will refill his morphine extended release 15 mg 1 p.o. daily and his hydromorphone 4 mg 1 p.o. 3 times daily. We will give him 1 month worth of medication. 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 Patient has been prescribed a controlled substance after being counseled on the medication, medication safety, and possible side effects. ALISHA report has been obtained and reviewed prior to prescription and found to be appropriate. Opioid contract was reviewed and signed by the patient, and that they have agreed to all of the terms set forth by our compliance program. Dr. Rodriguez has reviewed this note and agrees with this plan of care. This note was dictated using voice recognition software and may contain errors or omissions [facility] History I have reviewed the patient's past medical history: Yes Medical History: Denies:: Diabetes Mellitus Type 1, Diabetes Mellitus Type 2 *Have you ever received a pneumonia vaccine?: Yes *Have you received a flu vaccine this season?: Yes Other Medical History: Reports: Arthritis Amputation: No Fractures: No - *Social History Alcohol Intake: never *Occupational Status:: other Housing: house Household Members: spouse *Travel in the last 8 weeks: None Family Hx:: Unable to obtain
== END ==
PROVIDERS: PCP Family Medicine; Visit Provider Clinical Nurse Specialist Family Health
DX: M51.16 Intervertebral disc disorders with radiculopathy, lumbar region (principal); M96.1 Postlaminectomy syndrome, not elsewhere classified
CPT/HCPCS: 99212

== ENCOUNTER → 2019-10-31 09:35 | Outpatient (POV) | payer MEDICARE, OTHER, SELFPAY ==
[2019-10-31 09:45] VITALS: BP 142/64; PULSE 66; RESP 18; TEMP 36.8; O2SAT 99; BMI 29.9
--- NOTE | 2019-10-31 10:37 | P.CONS_ITS ---
[facility] Pain Management SOAP Note Subjective:: Patient is a 69-year-old white male who presents today for follow-up. We are working towards weaning him for an intrathecal pain pump patient is currently on morphine 15 extended release 1 daily and hydromorphone 4 mg 1 p.o. 3 times daily. He rates his pain a 7 out of 10. Patient urine drug screen had diazepam at his last visit. We will continue to wean him. We will stop his morphine and decrease his hydromorphone to 2 mg up to 6 times a day. Alisha #[id number] ROS General: no recent weight change, no fever, no sleep disturbances Respiratory: no cough, no shortness of air, no recurring pulmonary infections Cardiovascular/Peripheral Vascular: No chest pain, No palpitations, no edema, no shortness of breath. Gastrointestinal: no new onset incontinence, normal bowel movements reported Genitourinary: no new onset incontinence Musculoskeletal: Back pain, leg pain Psychiatric: normal mood/ affect Neurological: [denies new onset weakness in extremities], [denies new onset balance issues] Objective:: Physical Exam General: Alert and oriented x3, no acute distress, pleasant and cooperative, [on room air] Lungs: Resps E/U, Symmetrical chest expansion, Eyes: PERRL Musculoskeletal: Flexion and extension of lumbar spine somewhat guarded secondary to pain, deep tendon reflexes normal, strength in upper and lower extremities [5/5], [abnormal gait noted] Neurological: speech clear, world geography teacher equal, no gross sensory deficits Assessment:: Degenerative disc disease lumbar spine lumbar radiculopathy and postlaminectomy syndrome Plan:: We will discontinue his morphine and change his hydromorphone to 2 mg 1 p.o. 6 times a day we will give him 1 month worth of medicine see him back in 1 month reassess his symptoms at that time he has been instructed to call the office if he has any issues prior to next appointment.We will repeat a urine drug screen today and set him up for a pill count. Dr. Rodriguez has reviewed this note and agrees with this plan of care. This note was dictated using voice recognition software and may contain errors or omissions Patient has been prescribed a controlled substance after being counseled on the medication, medication safety, and possible side effects. ALISHA report has been obtained and reviewed prior to prescription and found to be appropriate. Opioid contract was reviewed and signed by the patient, and that they have agreed to all of the terms set forth by our compliance program. [facility] History I have reviewed the patient's past medical history: Yes Medical History: Denies:: Diabetes Mellitus Type 1, Diabetes Mellitus Type 2 *Have you ever received a pneumonia vaccine?: Yes *Have you received a flu vaccine this season?: Yes Other Medical History: Reports: Arthritis Amputation: No Fractures: No - *Social History Alcohol Intake: never *Occupational Status:: other Housing: house Household Members: spouse *Travel in the last 8 weeks: None Family Hx:: Unable to obtain
== END ==
PROVIDERS: PCP Family Medicine; Visit Provider Clinical Nurse Specialist Family Health
DX: M51.16 Intervertebral disc disorders with radiculopathy, lumbar region (principal); M96.1 Postlaminectomy syndrome, not elsewhere classified
CPT/HCPCS: 99212

== ENCOUNTER → 2019-12-07 09:00 | Outpatient (POV) | payer MEDICARE, OTHER, SELFPAY ==
[2019-12-07 09:23] VITALS: BP 149/89; PULSE 94; RESP 18; O2SAT 98; BMI 31.3
--- NOTE | 2019-12-07 10:11 | [facility].PAINSOAP ---
[facility] Pain Management SOAP Note Subjective:: Patient is a 69-year-old male who presents today for follow-up. He is being treated for low back pain with lumbar radiculopathy symptoms and postlaminectomy syndrome lumbar spine. Patient has been weaning of recent days on his oral medications for possible intrathecal therapy, however, he is here today because the patient has run out of his medication. The patient was previously on morphine sulfate ER 15 mg 1 tablet p.o. daily as well as hydromorphone 4 mg 1 tablet p.o. 3 times daily. At his last visit, he was weaned from the morphine sulfate and was started on hydromorphone 2 mg 1 tablet p.o. 6 times daily. He does say that he was taking his medication more than he was supposed to without realizing it. He also says that he is having worsening pain to the point that he is unable to get out of the bed. Patient says that is why he was taking more medication. He is here today because he is concerned he will begin withdrawing from the medication. [facility] #[id number] has been reviewed and is appropriate. His morphine equivalent is 40. Patient's urine drug screens have been appropriate in the past. Rate his pain a 9 out of 10 today. Review of Systems General: No recent weight changes, no fever, no sleep disturbances Respiratory: No cough, no shortness of air, no recurring pulmonary infections Cardiovascular/peripheral vascular: No chest pain, no palpitations, no edema, no shortness of breath Gastrointestinal: No new onset incontinence, normal bowel movements reported Genitourinary: No new onset incontinence Musculoskeletal: Low back pain, bilateral lower extremity pain Psychiatric: Normal mood/affect Neurological: [Denies weakness in extremities], [denies balance issues] Objective:: Physical exam General: Alert and oriented x3, no acute distress, pleasant and cooperative, [on room air] Lungs: Respirations even and unlabored, symmetrical chest expansion Eyes: PERRL Musculoskeletal: Flexion and extension of lumbar spine somewhat guarded secondary to pain, deep tendon reflexes normal, strength in upper and lower extremities [5/5], [abnormal gait noted] Neurological: Speech clear, slot floor person equal, no gross sensory deficit Assessment:: Degenerative disc disease lumbar spine with lumbar radiculopathy symptoms, postlaminectomy syndrome lumbar spine Plan:: I did contact Dr. rodriguez regarding the patient's dilemma. He has taken all of his medication for the month. Patient backed up his medication on November 12. He is completely out of his medication at this time. Unfortunately, he has broken his contract with the pain clinic. Dr. Rodriguez has advised the patient that he will need to follow-up with a new pain management center his primary care provider for further oral medication management. We will discharge him from our clinic, unless he would like to undergo injections. He has been instructed to contact the clinic if he does decide at a later date to undergo injections. The patient and I specifically discussed risk factors for COVID19. These risks include, but are not limited to age greater than 60, heart or lung disease, diabetes, immunosuppression, and travel. We also discussed NSAIDs may worsen COVID19 infection or symptoms. Patient should not use NSAIDs to treat COVID19 signs or symptoms. Patient was also informed that any type of corticosteroid of any form (oral or injection) will decrease the patient's immune system response and may increase the likelihood of COVID19 infection [address] symptoms[address]. Rodriguez has reviewed this note and agrees with this plan of care. This note was dictated using voice recognition software and make contain errors or omissions. [facility] History I have reviewed the patient's past medical history: Yes Medical History: Denies:: Diabetes Mellitus Type 1, Diabetes Mellitus Type 2 *Have you ever received a pneumonia vaccine?: Yes *Have you received a flu vaccine this season?: Yes O
== END ==
PROVIDERS: PCP Family Medicine; Visit Provider Clinical Nurse Specialist Family Health
DX: M51.16 Intervertebral disc disorders with radiculopathy, lumbar region (principal); M96.1 Postlaminectomy syndrome, not elsewhere classified
CPT/HCPCS: 99212